=== PATIENT | female | born 1950 | race Caucasian/White ===

== ENCOUNTER 2024-07-21 22:11 | Inpatient (IN) | payer MEDICARE, OTHER ==
[~2024-07-21] VITALS: Ht 154.9 cm; Wt 88.9 kg
[~2024-07-21 22:11] MED LIST: AMLO10TA80 MT; OMEP20CA14 MT; SPIR25TA6 MT
[2024-07-21] MEDS: SODIUM CHLORIDE 0.9% 1,000 ML IV ONE (23:39)
[2024-07-21] MEDS: MORPHINE SULFATE 4 MG/ML INJ (FOR IV/IM USE) IV STA (23:39)
[2024-07-21] MEDS: ONDANSETRON HCL 4MG/2ML INJ IV STA (23:39)
[2024-07-22 01:20] LABS: BASOPHILS % 0.5 % (0.0-2.0); EOSINOPHILS % 0.2 % (0.0-5.0); HEMATOCRIT. 40.4 % (36.0-48.0); HEMOGLOBIN. 14.4 g/dL (12.0-16.0); MEAN CORPUSCULAR HEMOGLOBIN 32.2 pg (28.0-32.0); MEAN CORPUSCULAR HGB CONC 35.6 g/dL (31.0-37.0); MEAN CORPUSCULAR VOLUME 90.4 fL (81.0-99.0); NEUTROPHILS % 78.3 % (40.0-76.0); RED BLOOD CELL COUNT 4.47 mill/uL (4.2-5.4); RED CELL DISTRIBUTION WIDTH 14.9 % (11.6-14.6); WHITE BLOOD COUNT 7.4 x1000/uL (4.5-11.0)
[2024-07-22 01:23] LABS: DIFFERENTIAL COMMENT 1
[2024-07-22 01:26] LABS: CARBON DIOXIDE 26 mEq/L (21-32); CHLORIDE 99 mEq/L (98-107); SODIUM 136 mEq/L (136-145)
[2024-07-22 01:27] LABS: CALCIUM 9.6 mg/dL (8.7-10.4)
[2024-07-22 01:31] LABS: CREATININE 0.8 mg/dL (0.6-1.0)
[2024-07-22 01:32] LABS: GLUCOSE 162 mg/dL (70-105); UREA NITROGEN BLOOD 14 mg/dL (9-23)
[2024-07-22 01:46] LABS: POTASSIUM 2.8 mEq/L (3.5-5.1)
[2024-07-22 02:04] LABS: MEAN PLATELET VOLUME 7.1 fl (7.4-10.4); PLATELET 180 x1000/uL (130-400)
[2024-07-22] MEDS: KCL 20MEQ/100ML PREMIX 100 ML IV SCH (02:25)
[2024-07-22 10:30] VITALS: BP 116/73; PULSE 75; RESP 18; TEMP 36.696
[2024-07-22 10:38] VITALS: BP 116/73; PULSE 75; RESP 18; TEMP 36.6696; O2SAT 96
[2024-07-22] MEDS ORDERED: ACETAMINOPHEN 325MG TABLET PO PRN (11:15)
[2024-07-22] MEDS ORDERED: ONDANSETRON HCL 4MG/2ML INJ IV PRN (11:15)
[2024-07-22] MEDS ORDERED: IPRATROPIUM/ALBUTEROL 0.5-3(2.5)MG/3ML NEB HHN PRN (11:15)
[2024-07-22] MEDS ORDERED: NALOXONE HCL 0.4MG/ML VIAL IV PRN (11:30)
[2024-07-22 12:02] VITALS: BP 128/71; PULSE 68; RESP 20; TEMP 36.72516; O2SAT 99
[2024-07-22] MEDS: ENOXAPARIN 40MG/0.4ML SYR SUBCUT SCH (13:35)
[2024-07-22] MEDS: HYDROCODONE/ACETAMINOPHEN 5/325MG TABLET PO PRN (13:36)
[2024-07-22 16:05] VITALS: BP 139/62; PULSE 61; RESP 18; TEMP 37.00296; O2SAT 95
[2024-07-22 16:56] LABS: CHLORIDE 101 mEq/L (98-107)
[2024-07-22 16:57] LABS: CARBON DIOXIDE 27 mEq/L (21-32); SODIUM 137 mEq/L (136-145)
[2024-07-22 16:58] LABS: CALCIUM 9.5 mg/dL (8.7-10.4)
[2024-07-22 17:02] LABS: CREATININE 0.6 mg/dL (0.6-1.0); GLUCOSE 105 mg/dL (70-105)
[2024-07-22 17:03] LABS: CREATINE KINASE MB FRACTION 0.6 ng/mL (0.5-3.6); TROPONIN I HIGH SENSITIVITY 9 ng/L (3.0-34); UREA NITROGEN BLOOD 8 mg/dL (9-23)
[2024-07-22 17:04] LABS: ALANINE AMINOTRANSFERASE 44 IU/L (10-49); ASPARTATE AMINOTRANSFERASE 42 IU/L (<34)
[2024-07-22 17:05] LABS: BILIRUBIN TOTAL 0.5 mg/dL (0.1-1.0); CREATINE KINASE 45 IU/L (34-145)
[2024-07-22] MEDS ORDERED: LOSA25TA26 MT (17:50)
[2024-07-22] MEDS ORDERED: HYDR25TA MT (17:50)
[2024-07-22] MEDS ORDERED: LEVO-65 MT (17:50)
[2024-07-22] MEDS: POTASSIUM CHLORIDE 20MEQ TABLET SR PO NR (18:44)
[2024-07-22 20:00] VITALS: BP 153/83; PULSE 78; RESP 18; TEMP 36.3918; O2SAT 97
[2024-07-22] MEDS: MORPHINE SULFATE 2 MG/ML INJ (NOT FOR IM USE) IV PRN (20:40)
[2024-07-23] VITALS (7 sets, daily range): BP systolic 130–150; BP diastolic 74–89; PULSE 72–97; RESP 18–19; TEMP 36.16956–37.00296; O2SAT 96–100
[2024-07-23 02:00] LABS: CREATINE KINASE MB FRACTION < 0.5 ng/mL (0.5-3.6); TROPONIN I HIGH SENSITIVITY 8 ng/L (3.0-34)
[2024-07-23 02:01] LABS: CREATINE KINASE 38 IU/L (34-145)
[2024-07-23 08:11] LABS: CHLORIDE 101 mEq/L (98-107); POTASSIUM 3.6 mEq/L (3.5-5.1); SODIUM 136 mEq/L (136-145)
[2024-07-23 08:12] LABS: CALCIUM 9.6 mg/dL (8.7-10.4); CARBON DIOXIDE 26 mEq/L (21-32)
[2024-07-23 08:17] LABS: BASOPHILS % 0.4 % (0.0-2.0); CREATININE 0.6 mg/dL (0.6-1.0); EOSINOPHILS % 1.1 % (0.0-5.0); GLUCOSE 115 mg/dL (70-105); HEMATOCRIT. 41.3 % (36.0-48.0); HEMOGLOBIN. 13.9 g/dL (12.0-16.0); LYMPHOCYTES % 21.3 % (20.0-50.0); MEAN CORPUSCULAR HEMOGLOBIN 30.9 pg (28.0-32.0); MEAN CORPUSCULAR HGB CONC 33.6 g/dL (31.0-37.0); MEAN CORPUSCULAR VOLUME 91.9 fL (81.0-99.0); MEAN PLATELET VOLUME 7.6 fl (7.4-10.4); MONOCYTES % 12.4 % (2.0-8.0); NEUTROPHILS % 64.8 % (40.0-76.0); PLATELET 189 x1000/uL (130-400); RED BLOOD CELL COUNT 4.49 mill/uL (4.2-5.4); UREA NITROGEN BLOOD 8 mg/dL (9-23); WHITE BLOOD COUNT 7.3 x1000/uL (4.5-11.0)
== END 2024-07-23 19:30 | disposition home or self-care (01) | DRG 563 ==
LOC: ER 22:11 → 7WST 07-22 01:59 → EDBEDREQ 07-22 02:14 → EDBEDREQTM 07-22 02:14
PROVIDERS: ADMIT Internal Medicine; ATTEND Internal Medicine
DX: S42.295A Other nondisplaced fracture of upper end of left humerus, initial encounter for closed fracture (principal); K80.10 Calculus of gallbladder with chronic cholecystitis without obstruction; E87.6 Hypokalemia; E66.9 Obesity, unspecified; I10 Essential (primary) hypertension; W01.0XXA Fall on same level from slipping, tripping and stumbling without subsequent striking against object, initial encounter; Y92.090 Kitchen in other non-institutional residence as the place of occurrence of the external cause; Y93.89 Activity, other specified; Y99.8 Other external cause status; Z79.899 Other long term (current) drug therapy; Z68.37 Body mass index [BMI] 37.0-37.9, adult; Z90.710 Acquired absence of both cervix and uterus
CPT/HCPCS: 36415; 71045; 72170; 73030; 73060; 73070; 73100; 76705; 80048; 80053; 82550; 82553; 84484; 85025; 93005; 99291; J1650; J2270; J2405; J3480; J7030